=== PATIENT | female | born 1985 | race American Indian/Alaskan Native ===

== ENCOUNTER 2020-06-20 00:14 | Emergency (ER) | payer MEDICAID ==
[2020-06-20 01:12] LABS: Basophils # (Auto) 0.1 K/mm3 (0.0-0.1); Basophils % (Auto) 0.7 % (0.0-1.8); Eosinophils # (Auto) 0.2 K/mm3 (0.0-0.4); Eosinophils % (Auto) 2.1 % (0.0-4.3); Hematocrit 36.2 % (30.3-42.9); Lymphocytes # (Auto) 2.7 K/mm3 (1.2-5.4); Lymphocytes % (Auto) 25.3 % (13.4-35.0); Mean Corpuscular HGB Conc 33 % (30-34); Mean Corpuscular Volume 87 fl (79-97); Monocytes # (Auto) 0.7 K/mm3 (0.0-0.8); Platelet Count 332 K/mm3 (140-440); Red Blood Count 4.18 M/mm3 (3.65-5.03); Red Cell Distribution Width 15.2 % (13.2-15.2)
--- NOTE | 2020-06-20 01:15 | XRay Report ---
CHEST 2 VIEWS INDICATION / CLINICAL INFORMATION: Chest pain. COMPARISON: None available. FINDINGS: SUPPORT DEVICES: None. HEART / MEDIASTINUM: No significant abnormality. LUNGS / PLEURA: Clear lungs. No significant pleural effusion. No pneumothorax. ADDITIONAL FINDINGS: No significant additional findings. IMPRESSION: 1. No acute abnormality of the chest. Signer Name: Jeffrey Mejia MD Signed: 06/20/2020 1:11 AM Workstation Name: [id number]
[2020-06-20 01:41] LABS: Alanine Aminotransferase 19 units/L (7-56); Albumin 4.8 g/dL (3.9-5); BUN/Creatinine Ratio 18; Blood Urea Nitrogen 14 mg/dL (7-17); Calcium 9.4 mg/dL (8.4-10.2); Hemolysis Index 1
--- NOTE | 2020-06-20 06:21 | Emergency Department Report ---
ED General Adult HPI - General Chief complaint: Chest Pain Stated complaint: CHEST PAIN;ABDOMINAL PAIN Time Seen by Provider: 06/20/20 06:16 Source: patient Mode of arrival: Ambulatory Limitations: No Limitations - Related Data Allergies Allergy/AdvReac Type Severity Reaction Status Date / Time amoxicillin Allergy Hives Verified 06/20/20 00:42 Penicillins Allergy Hives Verified 06/20/20 00:42 ED Review of Systems ROS: Stated complaint: CHEST PAIN;ABDOMINAL PAIN Other details as noted in HPI ED Past Medical Hx - Past Medical History Previous Medical History?: Yes Hx Asthma: Yes - Surgical History Past Surgical History?: Yes Additional Surgical History: c-sec X4 - Social History Smoking Status: Current Every Day Smoker Substance Use Type: Alcohol ED Physical Exam - General Limitations: No Limitations ED Course Vital Signs 06/20/20 00:39 Temperature 98.7 F Pulse Rate 80 Respiratory 18 Rate Blood Pressure 136/86 O2 Sat by Pulse 96 Oximetry ED Medical Decision Making - Lab Data Result diagrams: 06/20/20 00:50 06/20/20 00:50 Laboratory Results - last 24 hr 06/20/20 06/20/20 06/20/20 00:50 00:50 03:52 WBC 10.7 RBC 4.18 Hgb 12.0 Hct 36.2 MCV 87 MCH 29 MCHC 33 RDW 15.2 Plt Count 332 Lymph % (Auto) 25.3 [place] % (Auto) 7.0 Eos % (Auto) 2.1 Baso % (Auto) 0.7 Lymph # (Auto) 2.7 [place] # (Auto) 0.7 Eos # (Auto) 0.2 Baso # (Auto) 0.1 Seg Neutrophils % 64.9 Seg Neutrophils # 7.0 Sodium 138 Potassium 4.2 Chloride 99.4 Carbon Dioxide 26 Anion Gap 17 BUN 14 Creatinine 0.8 Estimated GFR > 60 BUN/Creatinine Ratio 18 Glucose 86 Calcium 9.4 Total Bilirubin 0.40 AST 18 ALT 19 Alkaline Phosphatase 85 Troponin T < 0.010 < 0.010 Total Protein 7.8 Albumin 4.8 Albumin/Globulin Ratio 1.6 - EKG Data -: EKG Interpreted by Me EKG shows normal: sinus rhythm, axis, intervals, QRS complexes, ST-T waves Rate: normal - EKG Data Interpretation: no acute changes (Mild early repolarization) Critical care attestation.: If time is entered above; I have spent that time in minutes in the direct care o f this critically ill patient, excluding procedure time. ED Disposition Condition: Stable Referrals: PRIMARY CARE, [Primary Care Provider] - 3-5 Days
[2020-06-20 06:33] VITALS: BP 133/78
--- NOTE | 2020-06-20 06:46 | Emergency Department Report ---
ED Chest Pain HPI - General Chief Complaint: Chest Pain Stated Complaint: CHEST PAIN;ABDOMINAL PAIN Time Seen by Provider: 06/20/20 06:16 Source: patient Mode of arrival: Ambulatory Limitations: No Limitations - History of Present Illness Initial Comments: This is a 34-year-old female who states that she awoke yesterday in the early a.m. with chest and abdominal pain. She described the pain as sharp and intermittent during the day. It has now become abdominal pain. She states that she went to another ER about a month ago for chest pain evaluation and was discharged. She denies any personal history of cardiac or pulmonary issues. 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 She states that she admits that she has been under stress since she lost her previous job. She denies any respiratory problems with the pain which has resolved in her chest and has minimal if not resolved in her abdomen. It was not a radiating or a pleuritic pain. She was not short of breath nor coughing. She has not done any long distance driving. She does not have any leg pain or swelling. He states that she had some nausea but no vomiting. She also stated that she had some mild diarrhea. He does not have a primary care provider. Patient states that she had an EGD and work-up by medical leader in the past. She does not recall any specific abnormal findiings. MD Complaint: chest pain -: days(s) (Awoke yesterday morning) Onset: during rest Pain Location: substernal, epigastric Pain Radiation: none Severity scale (0 -10): 0 Quality: sharp Consistency: now resolved Improves With: nothing Worsens With: nothing re: nausea. denies: vomting, diaphoresis, dyspnea, sense of impending doom Other Symptoms: denies: cough, fever, syncope Treatments Prior to Arrival: none Aspirin use within the Past 7 Days: (0) No - Related Data Previous Rx's Medication Instructions Recorded Last Taken Type Lansoprazole [Prevacid] 15 mg PO BID #30 cap 06/20/20 Unknown Rx traMADoL [Ultram 50 MG tab] 50 mg PO Q6HR PRN #10 tablet 06/20/20 Unknown Rx Allergies Allergy/AdvReac Type Severity Reaction Status Date / Time amoxicillin Allergy Hives Verified 06/20/20 00:42 Penicillins Allergy Hives Verified 06/20/20 00:42 Heart Score - HEART Score History: Slightly suspicious EKG: Normal Age: < 45 Risk factors: No known risk factors Troponin: < normal limit HEART Score: 0 - EKG Read Time Time EKG Completed: 00:47 EKG Read Time: 00:50 - Critical Actions Critical Actions: 0-3 pts:0.9-1.7%risk of adverse cardiac event.Candidate for discharge ED Review of Systems ROS: Stated complaint: CHEST PAIN;ABDOMINAL PAIN Other details as noted in HPI Constitutional: denies: chills, fever Eyes: denies: eye pain, eye discharge, vision change ENT: denies: ear pain, throat pain Respiratory: denies: cough, shortness of breath, wheezing Cardiovascular: chest pain. denies: palpitations Endocrine: no symptoms reported Gastrointestinal: abdominal pain, nausea. denies: vomiting, diarrhea Genitourinary: denies: urgency, dysuria, discharge, abnormal menses Musculoskeletal: denies: back pain, joint swelling, arthralgia Skin: denies: rash, lesions Neurological: denies: headache, weakness, paresthesias Psychiatric: denies: anxiety, depression Hematological/Lymphatic: denies: easy bleeding, easy bruising ED Past Medical Hx - Past Medical History Previous Medical History?: Yes Hx Asthma: Yes - Surgical History Past Surgical History?: Yes Additional Surgical History: c-sec X4 - Social History Smoking Status: Current Every Day Smoker Substance Use Type: Alcohol - Medications Home Medications: Home Medications Medication Instructions Recorded Confirmed Last Taken Type Lansoprazole [Prevacid] 15 mg PO BID #30 cap 06/20/20 Unknown Rx traMADoL [Ultram 50 MG tab] 50 mg PO Q6HR PRN #10 tablet 06/20/20 Unknown Rx ED Physical Exam - General Limitations: No Limitations General appearance: alert, in no apparent distress - Head Head exam: Present: atraumatic, normocephalic - Eye Eye exam: Present: normal appearance. Absent: scleral icterus - ENT ENT exam: Present: mucous membranes moist - Neck Neck exam: Present: normal inspection - Respiratory Respiratory exam: Present: normal lung sounds bilaterally. Absent: respiratory distress - Cardiovascular Cardiovascular Exam: Present: regular rate, normal rhythm. Absent: systolic murmur, diastolic murmur, rubs, gallop - GI/Abdominal GI/Abdominal exam: Present: soft, normal bowel sounds. Absent: distended, tenderness, guarding, rebound, rigid - Extremities Exam Extremities exam: Present: normal inspection, normal capillary refill. Absent: pedal edema, joint swelling, calf tenderness - Back Exam Back exam: Present: normal inspection - Neurological Exam Neurological exam: Present: alert, oriented X3, CN II-XII intact. Absent: motor sensory deficit - Psychiatric Psychiatric exam: Present: normal affect, normal mood - Skin Skin exam: Present: warm, dry, intact, normal color. Absent: rash ED Course Vital Signs 06/20/20 06/20/20 00:39 06:33 Temperature 98.7 F Pulse Rate 80 76 Respiratory 18 18 Rate Blood Pressure 136/86 Blood Pressure 133/78 [Left] O2 Sat by Pulse 96 98 Oximetry ODALYS score - Odalys Score Age > 65: (0) No Aspirin use within the Past 7 Days: (0) No 3 or more CAD Risk Factors: (0) No 2 or more Angina events in past 24 hrs: (0) No Known CAD with more than 50% Stenosis: (0) No Elevated Cardiac Markers: (0) No ST Deviation Greater than 0.5mm: (0) No ODALYS Score: 0 ED Medical Decision Making - Lab Data Result diagrams: 06/20/20 00:50 06/20/20 00:50 Laboratory Results - last 24 hr 06/20/20 06/20/20 06/20/20 00:50 00:50 03:52 WBC 10.7 RBC 4.18 Hgb 12.0 Hct 36.2 MCV 87 MCH 29 MCHC 33 RDW 15.2 Plt Count 332 Lymph % (Auto) 25.3 [place] % (Auto) 7.0 Eos % (Auto) 2.1 Baso % (Auto) 0.7 Lymph # (Auto) 2.7 [place] # (Auto) 0.7 Eos # (Auto) 0.2 Baso # (Auto) 0.1 Seg Neutrophils % 64.9 Seg Neutrophils # 7.0 Sodium 138 Potassium 4.2 Chloride 99.4 Carbon Dioxide 26 Anion Gap 17 BUN 14 Creatinine 0.8 Estimated GFR > 60 BUN/Creatinine Ratio 18 Glucose 86 Calcium 9.4 Total Bilirubin 0.40 AST 18 ALT 19 Alkaline Phosphatase 85 Troponin T < 0.010 < 0.010 Total Protein 7.8 Albumin 4.8 Albumin/Globulin Ratio 1.6 - EKG Data -: EKG Interpreted by Ca EKG shows normal: sinus rhythm, axis, intervals, QRS complexes, ST-T waves - EKG Data Interpretation: other (Perhaps some mild early repolarization) Critical care attestation.: If time is entered above; I have spent that time in minutes in the direct care of this critically ill patient, excluding procedure time. ED Disposition Clinical Impression: Atypical chest pain Abdominal pain Qualifiers: Abdominal location: epigastric Qualified Code(s): R10.13 - Epigastric pain Disposition: DC- TO HOME OR SELFCARE Is pt being admited?: No Does the pt Need Aspirin: No Condition: Stable Instructions: Nonspecific Chest Pain, Adult, Abdominal Pain, Adult Additional Instructions: Follow-up with the [place] [facility]. Return any increased symptoms acute change or problem. Rx as directed. Prescriptions: Lansoprazole [Prevacid] 15 mg PO BID #30 cap traMADoL [Ultram 50 MG tab] 50 mg PO Q6HR PRN #10 tablet PRN Reason: Pain Referrals: PRIMARY CARE, [Primary Care Provider] - 3-5 Days Time of Disposition: 06:51
--- NOTE | 2020-06-23 17:36 | Electrocardiograph Report ---
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
== END 2020-06-20 06:59 | disposition home or self-care (01) ==
LOC: ED 00:14
DX: R07.89 Other chest pain (principal); R10.13 Epigastric pain; J45.909 Unspecified asthma, uncomplicated; F17.200 Nicotine dependence, unspecified, uncomplicated; Z98.890 Other specified postprocedural states; Z79.899 Other long term (current) drug therapy; Z88.0 Allergy status to penicillin; Z88.1 Allergy status to other antibiotic agents
CPT/HCPCS: 36415; 71046; 80053; 84484; 85025; 93005

== ENCOUNTER 2020-09-21 23:04 | Emergency (ER) | payer MEDICAID ==
[2020-09-22 03:02] VITALS: BP 131/97
[2020-09-22] MEDS ORDERED: ASPIRIN 325 MG TAB PO ONE (03:03)
[2020-09-22 04:09] LABS: Basophils % (Auto) 0.4 % (0.0-1.8); Eosinophils # (Auto) 0.2 K/mm3 (0.0-0.4); Eosinophils % (Auto) 1.8 % (0.0-4.3); Hematocrit 34.9 % (30.3-42.9); Hemoglobin 11.6 gm/dl (10.1-14.3); Lymphocytes # (Auto) 2.1 K/mm3 (1.2-5.4); Lymphocytes % (Auto) 16.8 % (13.4-35.0); Mean Corpuscular HGB Conc 33 % (30-34); Mean Corpuscular Volume 87 fl (79-97); Monocytes # (Auto) 1.1 K/mm3 (0.0-0.8); Monocytes % (Auto) 8.7 % (0.0-7.3); Platelet Count 296 K/mm3 (140-440); Red Cell Distribution Width 16.1 % (13.2-15.2)
[2020-09-22 04:22] LABS: Alanine Aminotransferase 13 units/L (7-56); Albumin 4.5 g/dL (3.9-5); BUN/Creatinine Ratio 14; Blood Urea Nitrogen 11 mg/dL (7-17); Calcium 8.7 mg/dL (8.4-10.2); Hemolysis Index 1
--- NOTE | 2020-09-22 04:51 | XRay Report ---
CHEST 2 VIEWS INDICATION / CLINICAL INFORMATION: chest pain. COMPARISON: Chest x-ray 06/20/2020 FINDINGS: SUPPORT DEVICES: None. HEART / MEDIASTINUM: No significant abnormality. LUNGS / PLEURA: No significant pulmonary or pleural abnormality. No pneumothorax. ADDITIONAL FINDINGS: No significant additional findings. IMPRESSION: 1. No acute findings. Signer Name: Michael Stein MD Signed: 09/22/2020 4:47 AM Workstation Name: [id number]
--- NOTE | 2020-09-22 17:45 | Electrocardiograph Report ---
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
== END 2020-09-22 10:10 ==
LOC: ED 23:04
DX: R07.9 Chest pain, unspecified (principal); Z53.21 Procedure and treatment not carried out due to patient leaving prior to being seen by health care provider
CPT/HCPCS: 36415; 71046; 80053; 84484; 84703; 85025; 93005